=== PATIENT | female | born 1965 | race Caucasian/White ===

== ENCOUNTER 2019-09-07 21:42 | Observation (INO) | payer OTHER ==
[~2019-09-07] VITALS: Ht 160 cm; Wt 124.6 kg
--- NOTE | 2019-09-07 21:59 | NUR ---
PT SLIPPED ON STEPS AND ROLLED LEFT ANKLE AND HEARD A POP. REFUSES PAIN MEDS AT THIS TIME. CONNECTED TO MONITORING. CALL LIGHT IN REACH. SPOUSE AT BEDSIDE.
--- NOTE | 2019-09-07 22:38 | NUR ---
ALL RESULSTS ARE BACK AT THIS TIME. CHART UP FOR RECHECK.
[2019-09-07] MEDS ORDERED: MORPHINE SULFATE 4 MG/ML, 1ML ONE (23:01)
[2019-09-07] MEDS ORDERED: ONDANSETRON 2MG/ML, 2ML ONE (23:01)
--- NOTE | 2019-09-07 23:07 | NUR ---
AWAITING ORTHO CONSULT. VERBAL ORDER RECEIVED FOR MORPHINE AND ZOFRAN. MEDS ADMIN PER NOV FOR PAIN 06/21.
[2019-09-07] MEDS: MORPHINE SULFATE 4 MG/ML, 1ML IVPush PRN (23:17)
[2019-09-07] MEDS ORDERED: ONDANSETRON 2MG/ML, 2ML IVPush ONE (23:30)
--- NOTE | 2019-09-07 23:40 | NUR ---
2nd call placed to ortho
--- NOTE | 2019-09-08 00:15 | NUR ---
REPORT GIVEN TO DIPIKA DAWSON.
--- NOTE | 2019-09-08 00:20 | NUR ---
REPORT RECEIVED FROM RN. ASSUMED CARE OF PT. SETTING UP FOR PROCEDURAL SEDATION. 2ND IV STARTED. FAMILY AT BEDSIDE. PT REPORTS PAIN 03/21.
[2019-09-08] MEDS ORDERED: PROPOFOL 10 MG/ML, 20ML ONE ×2 (00:23→00:40)
[2019-09-08] MEDS ORDERED: MORPHINE SULFATE 4 MG/ML, 1ML ONE ×3 (01:17→01:33)
[2019-09-08] MEDS: MORPHINE SULFATE 4 MG/ML, 1ML IVPush PRN ×3 (01:22→01:48)
[2019-09-08] MEDS ORDERED: PROPOFOL 10 MG/ML, 20ML IVPush ONE ×2 (01:30)
[2019-09-08] MEDS ORDERED: ONDANSETRON 2MG/ML, 2ML ONE (01:59)
[2019-09-08] MEDS ORDERED: PROMETHAZINE 25 MG/ML, 1ML ONE (02:15)
[2019-09-08] MEDS ORDERED: PROMETHAZINE 25 MG/ML, 1ML IM ONE (02:30)
[2019-09-08 03:05] VITALS: BP 117/78
[2019-09-08] MEDS ORDERED: LABETALOL 5 MG/ML SYR. (IV ONLY) IVPush PRN (03:30)
[2019-09-08] MEDS ORDERED: PROMETHAZINE 25 MG/ML, 1ML IM PRN (03:30)
[2019-09-08] MEDS ORDERED: ONDANSETRON 2MG/ML, 2ML IVPush PRN (03:30)
[2019-09-08] MEDS ORDERED: ACETAMINOPHEN 325 MG TABLET PO PRN (03:30)
[2019-09-08] MEDS ORDERED: KETOROLAC 30 MG/1 ML IV PRN (03:30)
[2019-09-08] MEDS: ENOXAPARIN 40 MG/0.4 ML SQ SCH (03:43)
[2019-09-08] MEDS: HYDROcodone/APAP 5/325 TABLET PO PRN ×3 (03:43→08:36)
[2019-09-08] MEDS: SENNA/DOCUSATE TABLET PO SCH (07:54)
[2019-09-08 08:00] VITALS: BP 134/84
[2019-09-08 08:37] LABS: BASOPHILS # (AUTO) 0.03 x10^3/uL (0-0.1); BASOPHILS % (AUTO) 0 % (0-1); EOSINOPHILS # (AUTO) 0.01 x10^3/uL (0-0.4); EOSINOPHILS % (AUTO) 0 % (1-7); LYMPHOCYTES # (AUTO) 1.66 x10^3/uL (1-3.4); LYMPHOCYTES % (AUTO) 17 % (22-44); MD NO; MEAN CORPUSCULAR HEMOGLOBIN 28.8 pg (27.0-34.8); MEAN CORPUSCULAR HGB CONC 32.5 g/dL (32.4-35.8); MEAN CORPUSCULAR VOLUME 88.6 fL (80-100); MEAN PLATELET VOLUME 10.1 fL (7.4-10.4); MONOCYTES # (AUTO) 0.62 x10^3/uL (0.2-0.8); MONOCYTES % (AUTO) 7 % (2-9); NEUTROPHILS # (AUTO) 7.21 x10^3/uL (1.8-6.8); NEUTROPHILS % (AUTO) 76 % (42-75); PLATELET COUNT 255 x10^3/uL (130-400); RED BLOOD COUNT 4.89 x10^6/uL (3.82-5.3); RED CELL DISTRIBUTION WIDTH 13.4 % (9.6-15.2)
[2019-09-08] MEDS: ACETAMINOPHEN 325 MG TABLET PO SCH ×2 (09:53→17:39)
[2019-09-08] MEDS: morphine SULFATE 10 MG/ML, 1ML IVPush PRN ×2 (10:04→15:01)
[2019-09-08] MEDS: IBUPROFEN 600 MG TABLET PO SCH ×3 (11:10→20:27)
[2019-09-08 12:55] VITALS: BP 106/73
[2019-09-08 21:45] VITALS: BP 122/76
[2019-09-09] MEDS: ACETAMINOPHEN 325 MG TABLET PO SCH (02:00)
[2019-09-09 02:01] VITALS: BP 113/74
[2019-09-09] MEDS: ENOXAPARIN 40 MG/0.4 ML SQ SCH (04:26)
[2019-09-09 05:42] LABS: BASOPHILS # (AUTO) 0.05 x10^3/uL (0-0.1); BASOPHILS % (AUTO) 1 % (0-1); EOSINOPHILS # (AUTO) 0.16 x10^3/uL (0-0.4); EOSINOPHILS % (AUTO) 2 % (1-7); LYMPHOCYTES # (AUTO) 2.79 x10^3/uL (1-3.4); LYMPHOCYTES % (AUTO) 37 % (22-44); MD NO; MEAN CORPUSCULAR HGB CONC 32.2 g/dL (32.4-35.8); MEAN CORPUSCULAR VOLUME 89.8 fL (80-100); MEAN PLATELET VOLUME 10.8 fL (7.4-10.4); MONOCYTES # (AUTO) 0.73 x10^3/uL (0.2-0.8); MONOCYTES % (AUTO) 10 % (2-9); NEUTROPHILS # (AUTO) 3.81 x10^3/uL (1.8-6.8); NEUTROPHILS % (AUTO) 51 % (42-75); PLATELET COUNT 224 x10^3/uL (130-400); RED BLOOD COUNT 4.48 x10^6/uL (3.82-5.3); RED CELL DISTRIBUTION WIDTH 13.5 % (9.6-15.2)
[2019-09-09 05:47] LABS: ANION GAP 5 mmol/L (5-15); CALCIUM 8.2 mg/dL (8.5-10.1); CHLORIDE 111 mmol/L (98-107); CREATININE 0.85 mg/dL (0.55-1.02)
[2019-09-09] MEDS: IBUPROFEN 600 MG TABLET PO SCH (05:49)
[2019-09-09] MEDS ORDERED: OXYC5TAB3 PO (06:58)
[2019-09-09 07:36] VITALS: BP 121/76
[2019-09-09] MEDS ORDERED: FLU VACC QS2019-20 36MOS UP/PF 0.5 ML IM-VACC ONE (08:30)
[2019-09-09] MEDS: SENNA/DOCUSATE TABLET PO SCH (09:00)
[2019-09-09 09:14] VITALS: BP 135/85
== END 2019-09-09 09:19 | disposition home or self-care (01) ==
LOC: ED 22:34 → INTOOBSV 09-08 01:55 → EDIP 09-08 01:55 → 4NE 09-08 02:45
PROVIDERS: ADMIT Family Medicine; ATTEND Hospitalist
DX: S82.302A Unspecified fracture of lower end of left tibia, initial encounter for closed fracture (principal); S82.832A Other fracture of upper and lower end of left fibula, initial encounter for closed fracture; E66.9 Obesity, unspecified; J96.01 Acute respiratory failure with hypoxia; Z23 Encounter for immunization; Z68.42 Body mass index [BMI] 45.0-49.9, adult; W10.8XXA Fall (on) (from) other stairs and steps, initial encounter; Y93.89 Activity, other specified; Y92.009 Unspecified place in unspecified non-institutional (private) residence as the place of occurrence of the external cause
CPT/HCPCS: 27752; 36415; 73590; 73610; 80048; 82565; 85025; 90471; 90686; 96372; 96374; 96375; 96376; 97162; 97530; 99284; G0378; J1650; J2270; J2405; J2550; J2704